=== PATIENT | male | born 2000 | race Caucasian/White ===

== ENCOUNTER 2021-01-06 09:26 | Emergency (ER) | payer OTHER ==
[~2021-01-06] VITALS: Ht 167.6 cm; Wt 79.2 kg
[2021-01-06] MEDS ORDERED: ONDA4TAB6 PO (11:33)
[2021-01-06 11:38] VITALS: BP 145/77
== END 2021-01-06 11:49 | disposition home or self-care (01) ==
LOC: M ED 09:26
DX: S06.0X0A Concussion without loss of consciousness, initial encounter (principal); W19.XXXA Unspecified fall, initial encounter; Y92.410 Unspecified street and highway as the place of occurrence of the external cause; Y93.55 Activity, bike riding; Y99.9 Unspecified external cause status

== ENCOUNTER 2021-09-29 14:02 | Emergency (ER) | payer OTHER ==
[~2021-09-29] VITALS: Ht 167.6 cm; Wt 79.1 kg
[~2021-09-29 14:02] MED LIST: ONDA4TAB6 PO
[2021-09-29] MEDS ORDERED: CYCL-707 PO ×2 (17:15→17:16)
[2021-09-29] MEDS ORDERED: NAPR-837 PO ×2 (17:15→17:16)
[2021-09-29 17:33] VITALS: BP 148/85
== END 2021-09-29 17:42 | disposition home or self-care (01) ==
LOC: M ED 14:02
DX: S29.012A Strain of muscle and tendon of back wall of thorax, initial encounter (principal); M62.830 Muscle spasm of back; X50.0XXA Overexertion from strenuous movement or load, initial encounter; Y93.02 Activity, running; Y99.9 Unspecified external cause status; Y92.9 Unspecified place or not applicable